=== PATIENT | male | born 1975 | race Caucasian/White ===

== ENCOUNTER 2018-07-17 22:02 | Emergency (ER) | payer OTHER ==
[~2018-07-17] VITALS: Ht 185.4 cm; Wt 91.2 kg
[2018-07-17 22:03] VITALS: Ht 185.4 cm; Wt 91.2 kg
[2018-07-17 22:54] VITALS: BP 123/78
== END 2018-07-17 22:54 | disposition home or self-care (01) ==
LOC: ED 22:02
DX: L98.8 Other specified disorders of the skin and subcutaneous tissue (principal); R03.0 Elevated blood-pressure reading, without diagnosis of hypertension

== ENCOUNTER 2018-07-30 19:56 | Emergency (ER) | payer OTHER ==
[~2018-07-30] VITALS: Ht 185.4 cm; Wt 90.7 kg
[2018-07-30 20:07] VITALS: Ht 185.4 cm; Wt 90.7 kg
[2018-07-30 21:38] VITALS: BP 145/72
== END 2018-07-30 21:39 | disposition home or self-care (01) ==
LOC: ED 19:56
DX: L72.3 Sebaceous cyst (principal)

== ENCOUNTER 2018-08-02 20:38 | Emergency (ER) | payer OTHER ==
[~2018-08-02] VITALS: Ht 185.4 cm; Wt 93.4 kg
[2018-08-02 20:58] VITALS: Ht 185.4 cm; Wt 93.4 kg
[2018-08-02 21:49] VITALS: BP 133/72
== END 2018-08-02 21:49 | disposition home or self-care (01) ==
LOC: ED 20:38
DX: S02.2XXA Fracture of nasal bones, initial encounter for closed fracture (principal); W51.XXXA Accidental striking against or bumped into by another person, initial encounter; Y93.61 Activity, american tackle football; Y92.89 Other specified places as the place of occurrence of the external cause; Y99.8 Other external cause status